=== PATIENT | female | born 1970 | race Caucasian/White ===

== ENCOUNTER 2016-11-14 16:23 | Emergency (ER) | payer MEDICARE ==
[2016-11-14 18:38] VITALS: BP 122/81
--- NOTE | 2016-11-14 19:11 | UC ---
Complaint Female HPI - History Of Current Complaint Chief Complaint: [facility] Stated Complaint: PERSONAL Time Seen by Provider: 11/14/16 18:57 Hx Obtained From: Patient Hx Last Menstrual Period: 11/11/16 ?: No Onset/Duration: Sudden Onset - C/o retained tampon. Associated Signs And Symptoms: Positive: Retained Foregin Body (Specify) - tampon in vagina - Allergies/Home Medications Allergies/Adverse Reactions: Allergies Allergy/AdvReac Type Severity Reaction Status Date / Time Amoxicillin Allergy Rash Verified 11/14/16 18:38 Diclofenac [From Cataflam] Allergy Difficulty Verified 11/14/16 18:38 Breathing Home Medications: Home Medications Torsemide 40 mg PO BID 11/14/16 [History Confirmed 11/14/16] PMH/Surg Hx/FS Hx/Imm Hx Endocrine History Of: Reports: Diabetes Denies: Thyroid Disease Cardiovascular History Of: Reports: Cardiac Disorders - CHF, Hypertension Respiratory History Of: Denies: COPD, Asthma GI/ History Of: Denies: Ulcer - Surgical History Surgical History: Yes Surgery Procedure, Year, and Place: Right ankle reconstruction, , Uterine D&C, Laporoscopy - Family History Known Family History: Positive: Cardiac Disease, Hypertension, Diabetes - Social History Occupation: Unemployed Lives: With Family Alcohol Use: Rare Substance Use Type: None Smoking Status (MU): Heavy Every Day Tobacco Smoker Type: Cigarettes Amount Used/How Often: 1 PPD Length of Time of Smoking/Using Tobacco: 20 YRS Have You Smoked in the Last Year: Yes - PT HAS PATCHES TO START QUITTING Cessation Counseling: Patient Advised to Stop Review of Systems Psychological: Anxious - a little worried about the All Other Systems Reviewed And Are Negative: Yes Physical Exam Triage Information Reviewed: Yes Appearance: Well-Appearing, No Pain Distress, Obese Vital Signs: Initial Vital Signs Temp 97.6 F 11/14/16 18:30 Pulse 101 11/14/16 18:30 Resp 16 11/14/16 18:30 BP 122/81 11/14/16 18:30 Pulse Ox 97 11/14/16 18:30 Eyes: Positive: Conjunctiva Clear Neck exam: Normal Respiratory Exam: Normal Cardiovascular Exam: Normal Abdomen Description: Positive: Nontender, Other: - Vaginal speculum exam with no tampon, dried blood only. Musculoskeletal Exam: Normal Neurological Exam: Normal Psychological Exam: Normal Skin Exam: Normal Complaint Female Dx - Differential Dx/Diagnosis Differential Diagnosis/HQI/PQRI: Endometriosis, Retained Foreign Body, Urinary Tract Infection Provider Diagnoses: Normal menstuation Discharge - Discharge Plan Condition: Stable Disposition: HOME Additional Instructions: Complaint Female HPI - History Of Current Complaint Chief Complaint: [facility]U Stated Complaint: PERSONAL Time Seen by Provider: 11/14/16 18:57 Hx Obtained From: Patient Hx Last Menstrual Period: 11/11/16 ?: No Onset/Duration: Sudden Onset - C/o retained tampon. Associated Signs And Symptoms: Positive: Retained Foregin Body (Specify) - tampon in vagina - Allergies/Home Medications Allergies/Adverse Reactions: Allergies Allergy/AdvReac Type Severity Reaction Status Date / Time Amoxicillin Allergy Rash Verified 11/14/16 18:38 Diclofenac [From Cataflam] Allergy Difficulty Verified 11/14/16 18:38 Breathing Home Medications: Home Medications Torsemide 40 mg PO BID 11/14/16 [History Confirmed 11/14/16] PMH/Surg Hx/FS Hx/Imm Hx Endocrine History Of: Reports: Diabetes Denies: Thyroid Disease Cardiovascular History Of: Reports: Cardiac Disorders - CHF, Hypertension Respiratory History Of: Denies: COPD, Asthma GI/ History Of: Denies: Ulcer - Surgical History Surgical History: Yes Surgery Procedure, Year, and Place: Right ankle reconstruction, , Uterine D&C, Laporoscopy - Family History Known Family History: Positive: Cardiac Disease, Hypertension, Diabetes - Social History Occupation: Unemployed Lives: With Family Alcohol Use: Rare Substance Use Type: None Smoking Status (MU): Heavy Every Day Tobacco Smoker Type: Cigarettes Amount Used/How Often: 1 PPD Length of Time of Smoking/Using Tobacco: 20 YRS Have You Smoked in the Last Year: Yes - PT HAS PATCHES TO START QUITTING Cessation Counseling: Patient Advised to Stop Physical Exam Vital Signs: Initial Vital Signs Temp 97.6 F 11/14/16 18:30 Pulse 101 11/14/16 18:30 Resp 16 11/14/16 18:30 BP 122/81 11/14/16 18:30 Pulse Ox 97 11/14/16 18:30 Smoking Cessation Tricks. 1. Cut down by 1 cigarette per day every 2-3 days. Write the number of smokes for that day on the calendar. 2. Identify triggers to smoking: after meals, on the phone, in the car, with coffee, on breaks at work, etc. 3. Formulate a plan with a behavior to replace the smoking. Fireballs in the car , doodle pad on the phone, flavored creamer for the coffee, go for a walk after a meal or on break at work. 4. For stress smokes do deep breathing relaxation. Breath deep in through the nose hold the breath in for a few seconds then breath out slowly through the mouth.
== END 2016-11-14 19:37 | disposition home or self-care (01) ==
LOC: UCCORT 16:23
DX: Z71.1 Person with feared health complaint in whom no diagnosis is made (principal); E11.9 Type 2 diabetes mellitus without complications; I50.9 Heart failure, unspecified; I10 Essential (primary) hypertension; E66.9 Obesity, unspecified; Z88.1 Allergy status to other antibiotic agents; F17.210 Nicotine dependence, cigarettes, uncomplicated
CPT/HCPCS: 99212; G0463

== ENCOUNTER 2017-07-06 18:12 | Emergency (ER) | payer BC, MEDICARE ==
[2017-07-06 18:38] VITALS: BP 106/71
--- NOTE | 2017-07-06 18:53 | UC ---
Skin Complaint HPI - HPI Summary HPI Summary: Pt c/o of painful area on upper back that began 2-3 days ago that is tneder to touch, has Tingling feeling, and has small blisters that erupt and drain.. Also , c/o of "red cheeks" that feels flushed and pt has c/o waking with "swollen " face in the morning that improves throughout the day and very dry skin. - History of Current Complaint Chief Complaint: [facility] Time Seen by Provider: 07/06/17 18:29 Stated Complaint: RASH Hx Obtained From: Patient Hx Last Menstrual Period: 06/27/17 ?: No Onset/Duration: Gradual Onset, Lasting Days, Still Present, Worse Since - onset Timing: Constant Onset Severity: Mild Current Severity: Moderate Location: Face, Other - upper back Character: Pruritus, Pain, Redness Aggravating Factor(s): Nothing, Touch Alleviating Factor(s): Unknown Associated Signs & Symptoms: Positive: Rash, Tenderness - Allergy/Home Medications Allergies/Adverse Reactions: Allergies Allergy/AdvReac Type Severity Reaction Status Date / Time Amoxicillin Allergy Rash Verified 07/06/17 18:38 Diclofenac [From Cataflam] Allergy Difficulty Verified 07/06/17 18:38 Breathing Home Medications: Home Medications Gabapentin CAP(*) [Neurontin 100 mg CAP(*)] 200 mg PO BID 07/06/17 [History Confirmed 07/06/17] Hydrocodone-Acetaminophen [Hydrocodone Bitartrate/AC 7.5-325 mg] 1 tab PO TID PRN 07/06/17 [History Confirmed 07/06/17] Review of Systems Constitutional: Negative Skin: Rash Eyes: Negative ENT: Negative Respiratory: Negative Cardiovascular: Negative Gastrointestinal: Negative Genitourinary: Negative Motor: Negative Neurovascular: Negative Musculoskeletal: Negative Neurological: Negative Psychological: Negative Is Patient Immunocompromised?: No All Other Systems Reviewed And Are Negative: Yes PMH/Surg Hx/FS Hx/Imm Hx Previously Healthy: Yes - Surgical History Surgical History: Yes Surgery Procedure, Year, and Place: Right ankle reconstruction, , Uterine D&C, Laporoscopy - Family History Known Family History: Positive: Cardiac Disease, Hypertension, Diabetes - Social History Occupation: Employed Full-time Lives: With Family Alcohol Use: Rare Substance Use Type: None Smoking Status (MU): Heavy Every Day Tobacco Smoker Type: Cigarettes Amount Used/How Often: 1/2 ppd Length of Time of Smoking/Using Tobacco: 20 YRS Have You Smoked in the Last Year: Yes - PT HAS PATCHES TO START QUITTING Physical Exam Triage Information Reviewed: Yes Appearance: Well-Appearing Vital Signs: Initial Vital Signs Temp 98.4 F 07/06/17 18:33 Pulse 80 07/06/17 18:33 Resp 16 07/06/17 18:33 BP 106/71 07/06/17 18:33 Pulse Ox 98 07/06/17 18:33 Vital Signs Reviewed: Yes Eye Exam: Normal ENT Exam: Normal Dental Exam: Normal Neck exam: Normal Respiratory Exam: Normal Cardiovascular Exam: Normal Abdominal Exam: Normal Musculoskeletal Exam: Normal Neurological Exam: Normal Psychological Exam: Normal Skin Exam: Other Skin: Positive: rashes - Face: possible butterfly rash or rosacea Dried vessicles on upper back and right side upper back Course/Dx - Differential Diagnoses - Skin Complaint Differential Diagnoses: Varicella Zoster - Diagnoses Provider Diagnoses: shingles. rosacea? Butterfly rash? Discharge - Discharge Plan Condition: Stable Disposition: HOME Prescriptions: Metronidazole (Topical) [Metrocream] 0.75 % EX DAILY #1 tube ValACYclovir (*) [Valtrex 1 GM(*)] 1 gm PO Q8H #21 tab Patient Education Materials: Shingles (ED), Rosacea (ED) Referrals: Cyndie Wade MD [Primary Care Provider] - As Soon As Possible
== END 2017-07-06 19:19 | disposition home or self-care (01) ==
LOC: UCCORT 18:12
DX: B02.9 Zoster without complications (principal); Z87.891 Personal history of nicotine dependence
CPT/HCPCS: 99212; G0463

== ENCOUNTER 2019-01-03 19:20 | Emergency (ER) | payer BC, MEDICARE ==
--- NOTE | 2019-01-03 19:22 | UC ---
Knee Pain HPI - HPI Summary HPI Summary: 48 yo female presents with LEFT knee pain. She tells me that 8 years ago she "tore everything" in her left knee and required extensive physical therapy. She was told she needed surgery, but declined because she has bad reactions to anesthesia. Over the last 2 days she has had left knee pain without injury. She is ambulatory without assistance. She denies numbness or tingling. She has chronic back pain and takes pain medication for this and has been taking this as usual - not helping her knee much. - History of Current Complaint Stated Complaint: LT KNEE INJURY Time Seen by Provider: 01/03/19 19:21 Hx Obtained From: Patient Hx Last Menstrual Period: 06/27/17 Onset/Duration: Sudden Onset Severity Initially: Moderate Severity Currently: Moderate Pain Intensity: 5 Pain Scale Used: 0-10 Numeric - Allergies/Home Medications Allergies/Adverse Reactions: Allergies Allergy/AdvReac Type Severity Reaction Status Date / Time amoxicillin Allergy Rash Verified 01/03/19 19:30 diclofenac Allergy Difficulty Verified 01/03/19 19:30 Breathing Home Medications: Home Medications Metoprolol Tartrate TAB* [Lopressor TAB*] 25 mg PO DAILY 01/03/19 [History Confirmed 01/03/19] PMH/Surg Hx/FS Hx/Imm Hx - Additional Past Medical History Additional PMH: Chronic back pain Cardiovascular History: Hypertension Psychological History: Anxiety, Depression - Surgical History Surgical History: Yes Surgery Procedure, Year, and Place: Right ankle reconstruction, , Uterine D&C, Laporoscopy - Family History Known Family History: Positive: Cardiac Disease, Hypertension, Diabetes - Social History Lives: With Family Alcohol Use: None Substance Use Type: None Smoking Status (MU): Current Every Day Smoker Type: Cigarettes Amount Used/How Often: 1 ppd Length of Time of Smoking/Using Tobacco: 20 YRS Have You Smoked in the Last Year: Yes - PT HAS PATCHES TO START QUITTING Household Exposure Type: Cigarettes Review of Systems All Other Systems Reviewed And Are Negative: Yes Constitutional: Positive: Negative Skin: Positive: Negative Respiratory: Positive: Negative Cardiovascular: Positive: Negative Neurovascular: Positive: Negative Musculoskeletal: Positive: Other: - Left knee pain Neurological: Positive: Negative Psychological: Positive: Negative Physical Exam - Summary Physical Exam Summary: GENERAL: NAD. WDWN. No pain distress. SKIN: No rashes, sores, lesions, or open wounds. CHEST: No accessory muscle use. Breathing comfortably and in no distress. CV: Pulses intact popliteal, PT, and DP. Cap refill <2seconds MSK: LEFT KNEE: Mild TTP about patella. FROM, pain with full extension. Strength 5/5. No edema or obvious bony deformities. No patella apprehension. Negative [place], A/P drawer, Lou, and varus/valgus stress. NEURO: Alert. Sensations intact and symmetric B/L LEs PSYCH: Age appropriate behavior. Triage Information Reviewed: Yes Vital Signs: Vital Signs: Temp Pulse Resp BP Pulse Ox 97.8 F 94 19 122/72 98 01/03/19 19:27 01/03/19 19:27 01/03/19 19:27 01/03/19 19:27 01/03/19 19:27 Vital Signs Reviewed: Yes Knee Pain Course/Dx - Course Course Of Treatment: XR: wet read by myself is negative for any acute process. Discussed with pt. Will refer her to physical therapy and orthopedics for further eval and treatment. - Differential Dx/Diagnosis Provider Diagnosis: Left knee pain Discharge - Sign-Out/Discharge Documenting (check all that apply): Patient Departure All imaging exams completed and their final reports reviewed: No - Discharge Plan Condition: Stable Disposition: HOME Patient Education Materials: Knee Pain (ED) Referrals: Dianelys Alegre MD [Primary Care Provider] - Montse Carolina MD [Medical Doctor] - 2 Weeks Additional Instructions: If you develop a fever, shortness of breath, chest pain, new or worsening symptoms - please call your PCP or go to the ED immediately. 1) Rest, elevate, and ice your knee intermittently throughout the day to reduce pain and swelling 2) Please call Physical therapy to schedule an appointment for treatment 3) Please call Orthopedics at the number below to schedule an appointment for further evaluation within 2 weeks - Billing Disposition and Condition Condition: STABLE Disposition: Home - Attestation Statements Provider Attestation: I was available for consult. This patient was seen by the ERINN. The patient was not presented to, seen by, or examined by me. -Jeannette
--- OUTSIDE RECORDS SUMMARY | 2019-01-03 19:27 | XMS REPORT | Continuity of Care Document ---
:1970 External Reference #:[id number] Author Name Rakel Childs Care Team Providers Name Role Phone Cyndie Wade MD Care Team Information Partner Unavailable Dianelys Alegre MD Primary Care Physician Unavailable Payers Date Identification Numbers Payment Provider Subscriber Policy Number: [id number] [facility] Tamara Gilmore Group Number: [id number] [address] [address] PayID: [id number] [place] [address] Policy Number: [id number] Medicare Tamara Gilmore PayID: [id number] [address] [place] [address] Problems Active Problems Provider Date Nonspecific abdominal symptom Liz Cortez ANP Onset: 12/01/2013 Chest pain Liz Cortez ANP Onset: 12/01/2013 Dyspnea Liz Cortez ANP Onset: 07/15/2015 Mixed hyperlipidemia Liz Cortez ANP Onset: 07/15/2015 Essential hypertension Liz Cortez ANP Onset: 07/15/2015 Lateral epicondylitis Thomas Ngo M.D. Onset: 08/26/2015 Disorder of shoulder Thomas Ngo M.D. 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 Obesity Cyndie Wade MD Onset: 07/29/2017 Type II diabetes mellitus Cyndie Wade MD Onset: 07/29/2017 uncontrolled Medial epicondylitis Phoebe Chaparro PA Onset: 01/27/2018 Palpitations Khari Sweeney M.D., Onset: 12/21/2018 [facility] Jaw pain Khari Sweeney M.D., Onset: 12/21/2018 [facility] Family History Date Family Member(s) Observation Comments Father Diabetes Mother Heart Disease Mother Diabetes First Brother Atrial Fibrillation Social History Type Date Description Comments Sex Unknown Lives With Diet Patient follows no dietary restrictions Occupation Currently Working 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/IADL's Independent with all ADL's Tobacco Use Start: Unknown Current Cigarette Smoker 1/2-1 ppd x 20 yrs 1 Pack Daily ETOH Use Denies alcohol use Recreational Drug Use Denies Drug Use Tobacco Use Start: Unknown Patient is a current smoker, smokes every day Smoking Status Reviewed: 08/17/18 Patient is a current smoker, smokes every day Allergies, Adverse Reactions, Alerts Active Allergies Reaction Severity Comments Date Amoxicillin Hives 04/18/2010 Cataflam SOB 04/18/2010 Anesthesia Intubated incorrectly 05/11/2013 Medications Active Medications SIG Qnty Indications Ordering Provider Date Flecainide Acetate 1 by mouth twice 180tabs Khari Sweeney 12/21/2018 a day Cadence Treadwell, FACC 100mg Tablets Metoprolol Succinate 1 by mouth every 90tabs R00.2 Khari Sweeney 2018 ER day Cadence Treadwell, FACC 50mg Tablets ER 24HR Fentanyl 1 patch every 72 Unknown 12mcg/HR hours Patches 72HR Klor-Con M20 1 by mouth every Unknown 20Meq day Tablets ER Bupropion HCL ER (SR) 1 by mouth twice Unknown a day 150mg Tablets ER 12HR Buspirone HCL 1 by mouth twice Unknown 10mg a day Tablets Lisinopril 1 by mouth every Unknown 20mg Tablets day Aspirin Adult Low 1 by mouth every Unknown Dose day 81mg Tablets DR Riveraemide 4 by mouth every Unknown 20mg Tablets day Robaxin 2 tabs by mouth Unknown 750mg Tablets every 6 hours as needed Pravastatin Sodium Take 1 Tablet By 90tabs Khari Sweeney 40mg Mouth Once Daily Cadence Treadwell, FACC Tablets Gabapentin 3 by mouth three Unknown 100mg times a day Capsules Omeprazole 1 by mouth every 90caps Cyndie Wade, 20mg day Capsules DR History Medications Potassium Chloride 4 by mouth daily 90tabs Shakila Arteaga, 03/16/2018 - Shana ER while on 04/28/2018 20Meq Tablets Metolazone. ER Decrease to 2 tabs (40 mEq) when not taking Metolazone Metolazone 1 tab by mouth 20 30tabs hSakila Arteaga, 03/16/2018 - 2.5mg minutes before MD 04/28/2018 Tablets Torsemide x 3 days Lorazepam 1-2 tabs one hour 2tabs Cyndie Wade, 03/09/2017 - 1mg Tablets prior to MRI MD 07/29/2017 Potassium Chloride ER 1 tab by mouth 60tabs Cyndie Wade, 03/03/2017 - daily MD 03/16/2018 20Meq Tablets ER Spiriva Respimat I50.32 Shakila Arteaga, 06/09/2016 - MD 10/29/2016 1.25mcg/Act Aerosol Prednisone 2 tabs (40 mg) 10tabs I50.32 Shakila Arteaga, 06/09/2016 - 20mg Tablets daily for 5 days 07/15/2016 for shortness of breath/wheezing Baclofen 1 tab by mouth 60tabs Thomas Ngo, 08/22/2015 - 10mg Tablets three times a day M.DCyndie 01/27/2016 spasm Spironolactone Take One Tablet By 90taallen Sweeney, 01/31/2014 - 25mg Mouth Once Daily Khari Treadwell, 04/28/2018 Tablets Jessika.Taniya, FACC Furosemide take one & 120tabs Shakila Arteaga, 04/18/2010 - 40mg Tablets one-half tablets MD Unknown by mouth once daily Methocarbamol 1 tabs by mouth at Unknown - 500mg bedtime as needed 08/19/2018 Tablets for muscle spasm Torsemide Take 2 Tablets By 180tabs Patel, - 20mg Tablets Mouth Once Daily Khari Treadwell, 03/16/2018 Cadence, [facility] Fluoxetine HCL take one capsule 30caps Sheri, Cyndie, - 40mg by mouth every day 04/28/2018 Capsules Hydrocodone-Acetamino up to 3 daily prn Unknown - phen 08/19/2018 5-325mg Tablets Tizanidine HCL as needed Unknown - Unknown Hydrocodone-Acetamino 1 by mouth every 6 Unknown - phen hours as needed 10/29/2016 5-325mg Tablets pain Tizanidine HCL 1 by mouth three Unknown - 4mg times a day as 08/22/2015 Capsules needed Buspirone HCL 1 tab by mouth 180tabs Sheri, Cyndie, - 15mg twice a day for 04/28/2018 Tablets anxiety as needed Cipro 1 by mouth twice a 14tabs Unknown - 500mg Tablets day Unknown Flagyl 1 tab by mouth 42tabs Unknown - 250mg Tablets three times a Unknown day-- 10 days Aspirin 1 po qd Unknown - 81mg Tablets 08/22/2015 Vicodin 1-2 po q4h prn Unknown - 5-500mg Tablets Unknown Metformin HCL 1 by mouth every 60tabs Unknown - 500mg day 01/27/2016 Tablets Spironolactone 1 tab po qd 180units Unknown - 20mg 01/31/2014 Coreg 1 by mouth twice a 180tabs R00.2 Patel, - 3.125mg Tablets day Khari Treadwell, 12/21/2018 Cadence, [facility] Magnesium Oxide 1 by mouth every 180tabs Unknown - 400mg day Unknown Tablets Potassium Chloride ER 1 by mouth twice a 30tabs Unknown - day Unknown 20Meq Tablets ER Medications Administered in Office Medication SIG Qnty Indications Ordering Provider Date Methylprednisolone Phoebe Clark PA 08/19/2018 (Depomedrol) 80mg injection Injection Betamethasone Acetate & Sodium Phoebe Chaparro PA 08/19/2018 Phosphate 3 MG Of Each Injection Methylprednisolone acetate Phoebe Chaparro PA 04/28/2018 (Depomedrol) 80mg injection Injection Methylprednisolone acetate Phoebe Chaparro PA 01/27/2018 (Depomedrol) 80mg injection Injection Methylprednisolone acetate Phoebe Chaparro PA 01/27/2018 (Depomedrol) 80mg injection Injection Betamethasone Acetate & Sodium Phoebe Chaparro PA 01/27/2018 Phosphate 3 MG Of Each Injection Betamethasone Acetate & Sodium Phoebe Chaparro PA 01/27/2018 Phosphate 3 MG Of Each Injection Methylprednisolone acetate Yi Alamo, 10/29/2016 (Depomedrol) 80mg injection RPAC Injection Betamethasone Acetate & Sodium Yi Alamo, 10/29/2016 Phosphate 3 MG Of Each RPAC Injection Immunizations CPT Code Status Date Vaccine Lot # [id number] Given Unknown Influenza Virus Split Children 6-35 Mo Of Age Intramuscular Use Vital Signs Date Vital Result Comment 12/21/2018 8:56am BP Systolic 112 mmHg BP Diastolic 74 mmHg Heart Rate 110 /min Weight 268.00 lb O2 % BldC Oximetry 93 % 08/19/2018 9:41am BP Systolic 132 mmHg BP Diastolic 74 mmHg Body Temperature 97.4 F Heart Rate 107 /min Height 64 inches 5'4" Weight 275.00 lb BMI (Body Mass Index) 47.2 kg/m2 BSA (Body Surface Area) 2.24 m2 Graff body weight in kilograms 54 kg O2 % BldC Oximetry 98 % Pain Level 10 04/28/2018 4:24pm BP Systolic Sitting Left Arm 110 mmHg BP Diastolic Sitting Left Arm 78 mmHg Body Temperature 98.0 F Heart Rate 86 /min Respiratory Rate 17 /min Height 64.5 inches 5'4.50" Weight 292.00 lb BMI (Body Mass Index) 49.3 kg/m2 BSA (Body Surface Area) 2.31 m2 Graff body weight in kilograms 56 kg O2 % BldC Oximetry 96 % 03/16/2018 11:53am BP Systolic Sitting Left Arm 104 mmHg BP Diastolic Sitting Left Arm 80 mmHg Heart Rate 82 /min Respiratory Rate 18 /min Height 64.5 inches 5'4.50" Weight 283.00 lb BMI (Body Mass Index) 47.8 kg/m2 BSA (Body Surface Area) 2.28 m2 Graff body weight in kilograms 56 kg O2 % BldC Oximetry 96 % 01/27/2018 4:27pm BP Systolic Sitting Left Arm 127 mmHg BP Diastolic Sitting Left Arm 83 mmHg Body Temperature 98.3 F Heart Rate 84 /min Respiratory Rate 17 /min Height 64.5 inches 5'4.50" Weight 282.00 lb BMI (Body Mass Index) 47.7 kg/m2 BSA (Body Surface Area) 2.28 m2 Graff body weight in kilograms 56 kg O2 % BldC Oximetry 98 % 10/28/2017 4:33pm BP Systolic 118 mmHg BP Diastolic 82 mmHg Body Temperature 97.4 F Heart Rate 76 /min Height 64.5 inches 5'4.50" Weight 282.00 lb BMI (Body Mass Index) 47.7 kg/m2 BSA (Body Surface Area) 2.28 m2 Graff body weight in kilograms 56 kg 07/29/2017 3:52pm BP Systolic Sitting Left Arm 111 mmHg BP Diastolic Sitting Left Arm 76 mmHg Heart Rate 67 /min Height 64.5 inches 5'4.50" Weight 286.00 lb BMI (Body Mass Index) 48.3 kg/m2 BSA (Body Surface Area) 2.29 m2 Graff body weight in kilograms 56 kg 07/29/2017 12:51pm BP Systolic 107 mmHg BP Diastolic 73 mmHg Heart Rate 72 /min Respiratory Rate 14 /min Height 64.5 inches 5'4.50" Weight 285.38 lb BMI (Body Mass Index) 48.2 kg/m2 BSA (Body Surface Area) 2.29 m2 Graff body weight in kilograms 56 kg O2 % BldC Oximetry 96 % 02/23/2017 11:00am BP Systolic Sitting Left Arm 105 mmHg BP Diastolic Sitting Left Arm 71 mmHg Heart Rate 81 /min Respiratory Rate 18 /min Height 64.5 inches 5'4.50" Weight 280.00 lb BMI (Body Mass Index) 47.3 kg/m2 BSA (Body Surface Area) 2.27 m2 Graff body weight in kilograms 56 kg 02/01/2017 8:41am Height 64.5 inches 5'4.50" Weight 184.00 lb BMI (Body Mass Index) 31.1 kg/m2 BSA (Body Surface Area) 1.90 m2 Graff body weight in kilograms 56 kg 06/09/2016 10:08am BP Systolic Sitting Right Arm 126 mmHg BP Diastolic Sitting Right Arm 87 mmHg Heart Rate 88 /min Respiratory Rate 18 /min Height 64.5 inches 5'4.50" Weight 297.00 lb BMI (Body Mass Index) 50.2 kg/m2 BSA (Body Surface Area) 2.33 m2 08/22/2015 2:34pm BP Systolic Sitting Right Arm 131 mmHg BP Diastolic Sitting Right Arm 87 mmHg Heart Rate 97 /min Height 64.5 inches 5'4.50" Weight 284.00 lb BMI (Body Mass Index) 48.0 kg/m2 BSA (Body Surface Area) 2.28 m2 07/15/2015 11:39am BP Systolic Sitting Right Arm 112 mmHg BP Diastolic Sitting Right Arm 78 mmHg Heart Rate 80 /min Respiratory Rate 16 /min Height 65 inches 5'5" Weight 287.00 lb BMI (Body Mass Index) 47.8 kg/m2 BSA (Body Surface Area) 2.31 m2 07/11/2015 2:51pm BP Systolic 113 mmHg BP Diastolic 77 mmHg Heart Rate 105 /min Respiratory Rate 18 /min Height 65 inches 5'5" Weight 285.00 lb BMI (Body Mass Index) 47.4 kg/m2 BSA (Body Surface Area) 2.30 m2 04/08/2015 3:53pm Heart Rate 77 /min Respiratory Rate 18 /min Height 65 inches 5'5" Weight 282.00 lb BMI (Body Mass Index) 46.9 kg/m2 BSA (Body Surface Area) 2.29 m2 01/31/2014 10:37am BP Systolic Sitting Left Arm 112 mmHg BP Diastolic Sitting Left Arm 72 mmHg Heart Rate 80 /min Respiratory Rate 20 /min Height 65 inches 5'5" Weight 272.00 lb BMI (Body Mass Index) 45.3 kg/m2 BSA (Body Surface Area) 2.25 m2 11/30/2013 11:26am BP Systolic Sitting Left Arm 88 mmHg BP Diastolic Sitting Left Arm 64 mmHg Body Temperature 99.2 F Heart Rate 60 /min Respiratory Rate 16 /min Height 65 inches 5'5" Weight 268.00 lb BMI (Body Mass Index) 44.6 kg/m2 BSA (Body Surface Area) 2.24 m2 05/11/2013 12:11pm BP Systolic Sitting Right Arm 96 mmHg BP Diastolic Sitting Right Arm 70 mmHg Heart Rate 70 /min Respiratory Rate 16 /min Height 65 inches 5'5" Weight 285.00 lb BMI (Body Mass Index) 47.4 kg/m2 BSA (Body Surface Area) 2.30 m2 04/17/2010 8:54am Height 65 inches 5'5" Weight 270.00 lb BMI (Body Mass Index) 44.9 kg/m2 Results Test Date Facility Test Result H/L Range Note Serum or plasma 12/07/19 N2N/CCD Import Serum or plasma 8.4 Low 8.5-10.1 calcium measurement 19 calcium measurement (mass/volume) (mass/volume) Serum or plasma 12/07/19 N2N/CCD Import Serum or plasma 9 8-16 anion gap 19 anion gap Co2 SerPl-sCnc 12/07/19 N2N/CCD Import Co2 SerPl-sCnc 25 21-32 19 Serum or plasma 12/07/19 N2N/CCD Import Serum or plasma 106 98-107 chloride measurement 19 chloride measurement Serum or plasma 12/07/19 N2N/CCD Import Serum or plasma 3.6 3.5-5.1 potassium 19 potassium measurement measurement Serum or plasma 12/07/19 N2N/CCD Import Serum or plasma <0.015 troponin i.cardiac 19 troponin i.cardiac measurement (ma measurement (mass/volume) Serum or plasma 12/07/19 N2N/CCD Import Serum or plasma 150 High 74-106 glucose measurement 19 glucose measurement (mass/volume) (mass/volume) Serum or plasma urea 12/07/19 N2N/CCD Import Serum or plasma 9 7-18 nitrogen measurement 19 urea nitrogen (mass/vo measurement (mass/volume) Serum or plasma 12/07/19 N2N/CCD Import Serum or plasma 0.6 0.6-1.3 creatinine 19 creatinine measurement measurement (mass/volum (mass/volume) Sodium SerPl-sCnc 12/07/19 N2N/CCD Import Sodium SerPl-sCnc 140 136-145 19 Serum or plasma urea 12/07/19 N2N/CCD Import Serum or plasma 15.0 nitrogen/creatinine 19 urea mass rati nitrogen/creatinine mass ratio GFR/Bsa pred.black 12/07/19 N2N/CCD Import GFR/Bsa pred.black >60 >60 SerPl MDRD-ArVRat 19 SerPl MDRD-ArVRat Estimated glomerular 12/07/19 N2N/CCD Import Estimated >60 >60 filtration rate 19 glomerular (GFR) non-Afr filtration rate (GFR) non- Blood monocytes 12/06/19 N2N/CCD Import Blood monocytes 0.67 0.3-0.9 automated count 19 automated count (number/volume) (number/volume) Automated blood 12/06/19 N2N/CCD Import Automated blood 0.17 0.0-0.5 eosinophil count 19 eosinophil count Automated blood 12/06/19 N2N/CCD Import Automated blood 0.05 0.0-0.1 basophil count 19 basophil count (number/volume) (number/volume) Automated blood 12/06/19 N2N/CCD Import Automated blood 0.09 immature granulocyte 19 immature count (number granulocyte count (number/volume) Automated blood 12/06/19 N2N/CCD Import Automated blood 0.00 nucleated 19 nucleated erythrocyte count erythrocyte count (count (count/volume) Fibrin D-dimer Feu 12/06/19 N2N/CCD Import Fibrin D-dimer Feu 0.74 measurement in 19 measurement in platelet poor pl platelet poor plasma (mass/volume) Serum or plasma 12/06/19 N2N/CCD Import Serum or plasma 7.2 6.4-8.2 protein measurement 19 protein measurement (mass/volume) (mass/volume) Serum or plasma 12/06/19 N2N/CCD Import Serum or plasma 3.5 3.4-5.0 albumin measurement 19 albumin measurement (mass/volume) (mass/volume) Serum globulin 12/06/19 N2N/CCD Import Serum globulin 3.7 1.9-4.3 measurement by 19 measurement by calculation (mass/vo calculation (mass/volume) Serum or plasma 12/06/19 N2N/CCD Import Serum or plasma 0.9 albumin/globulin 19 albumin/globulin mass ratio mass ratio Serum or plasma 12/06/19 N2N/CCD Import Serum or plasma 0.2 0.2-1.0 total bilirubin 19 total bilirubin measurement (mass/ measurement (mass/volume) Serum or plasma 12/06/19 N2N/CCD Import Serum or plasma 30 15-37 aspartate 19 aspartate aminotransferase aminotransferase measure measurement (enzymatic activity/volume) Serum or plasma 12/06/19 N2N/CCD Import Serum or plasma 27 12-78 alanine 19 alanine aminotransferase aminotransferase measureme measurement (enzymatic activity/volume) Serum or plasma 12/06/19 N2N/CCD Import Serum or plasma 67 45-117 alkaline phosphatase 19 alkaline measurement ( phosphatase measurement (enzymatic activity/volume) Blood erythrocytes 12/06/19 N2N/CCD Import Blood erythrocytes 4.84 3.90- 5.4 automated count 19 automated count 0 (number/volume) (number/volume) Automated leukocyte 12/06/19 N2N/CCD Import Automated leukocyte 10.5 3.1 -10.7 count 19 count (number/volume) (number/volume) Blood hemoglobin 12/06/19 N2N/CCD Import Blood hemoglobin 14.3 11.6-15. measurement 19 measurement 8 (mass/volume) (mass/volume) Hct VFr Bld Auto 12/06/19 N2N/CCD Import Hct VFr Bld Auto 41.4 36.0-46. 19 1 Automated 12/06/19 N2N/CCD Import Automated 85.5 80.9-99. erythrocyte mean 19 erythrocyte mean 0 corpuscular volume corpuscular volume (MCV (MCV) measurement Automated 12/06/19 N2N/CCD Import Automated 29.5 25.9-32. erythrocyte mean 19 erythrocyte mean 7 corpuscular corpuscular hemoglobin hemoglobin (mass per erythrocyte) Automated 12/06/19 N2N/CCD Import Automated 34.5 High 30.8-34. erythrocyte mean 19 erythrocyte mean 3 corpuscular corpuscular hemoglobin hemoglobin concentration measurement (mass/volume) Automated blood 12/06/19 N2N/CCD Import Automated blood 331 155-360 platelet count 19 platelet count (count/volume) (count/volume) Automated 12/06/19 N2N/CCD Import Automated 40.9 36-47 erythrocyte 19 erythrocyte distribution width distribution width Automated 12/06/19 N2N/CCD Import Automated 13.2 11.7-14. erythrocyte 19 erythrocyte 4 distribution width distribution width ratio ratio Automated blood 12/06/19 N2N/CCD Import Automated blood 10.4 8.9-12.4 platelet mean volume 19 platelet mean measurement volume measurement Automated blood 12/06/19 N2N/CCD Import Automated blood 3.62 1.0-4.0 lymphocyte count 19 lymphocyte count (number/volume) (number/volume) Absolute neutrophil 12/06/19 N2N/CCD Import Absolute neutrophil 5.88 1.8 -7.0 count 19 count Automated blood 12/06/19 N2N/CCD Import Automated blood 0.0 < 10/ nucleated 19 nucleated 100 WBC erythrocyte count as erythrocyte count per as percentage of total leukocytes Automated blood 12/06/19 N2N/CCD Import Automated blood 0.9 0.0-5.0 immature granulocyte 19 immature count as perc granulocyte count as percentage of total leukocytes Automated blood 12/06/19 N2N/CCD Import Automated blood 56.1 40.4-72. neutrophils/100 19 neutrophils/100 8 leukocytes leukocytes Automated blood 12/06/19 N2N/CCD Import Automated blood 34.5 20.0-42. lymphocytes/100 19 lymphocytes/100 0 leukocytes leukocytes Automated monocyte % 12/06/19 N2N/CCD Import Automated monocyte 6.4 4.3- 13.2 19 % Automated basophil % 12/06/19 N2N/CCD Import Automated basophil 0.5 0.0- 1.1 19 % Automated eosinophil 12/06/19 N2N/CCD Import Automated 1.6 0.0-6.6 % 19 eosinophil % Basic Metabolic 03/16/20 [facility] Glucose 153 mg/dL High 74-106 1 Panel [address] [place] [address] [phone] BUN 9 mg/dL Normal 7-18 Creatinine 0.8 mg/dL Normal 0.6-1.3 Glom Filtration Rate, Estimate >60 mL/min >60 If >60 mL/min >60 2 BUN/Creat 11.2 ratio Sodium 138 mmol/L Normal 136-145 Potassium 3.9 mmol/L Normal 3.5-5.1 Chloride 99 mmol/L Normal 98-107 Carbon Dioxide 30 mmol/L Normal 21-32 Anion Gap 9 mEq/L Normal 8-16 Calcium 9.1 mg/dL Normal 8.5-10.1 Aot Request 03/11/2018 [facility] Aot Request Test(s) added 3, [address] [place] [address] [phone] Tests to be added: serum hcg Microalbumin,Random 07/29/2017 [facility] Microalbumin,Urine < 5.0 < [address] mg/L 20.0 [place] [address] [phone] Laboratory test 02/24/2017 [facility] Rheumatoid Factor < Normal 0.0-1 [address] Screen 10.0 5.0 [place] [address] IU/mL [phone] Sedimentation Rate 45 mm/hr High 0-20 7 Comprehensive Metabolic 02/24/2017 [facility] Glucose 131 mg/dL High 74-106 Panel 134 [place], [place] [id number] [phone] BUN 18 mg/dL Normal 7-18 Creatinine 0.8 mg/dL Normal 0.6-1.3 Glom Filtration Rate, Estimate >60 mL/min >60 If >60 mL/min >60 8 BUN/Creat 22.5 ratio Sodium 138 mmol/L Normal 136-145 Potassium 3.3 mmol/L Low 3.5-5.1 Chloride 102 mmol/L Normal 98-107 Carbon Dioxide 28 mmol/L Normal 21-32 Anion Gap 8 mEq/L Normal 8-16 Calcium 8.9 mg/dL Normal 8.5-10.1 Total Protein 6.8 g/dL Normal 6.4-8.2 Albumin 3.0 g/dL Low 3.4-5.0 Globulin 3.8 g/dL Normal 1.9-4.3 Alb/Glob 0.8 ratio Bilirubin,Total 0.3 mg/dL Normal 0.2-1.0 Sgot/Ast 11 U/L Low 15-37 9 SGPT/Alt 21 U/L Normal 12-78 Alkaline Phosphatase 70 U/L Normal 45-117 CCP Igg/Iga 02/24/2017 [facility] CCP Igg/Iga 5 units 0-19 10 Antibodies 134 [facility] Antibodies [place], [place] [id number] [phone] Laboratory test 02/24/2017 [facility] CK 53 U/L Normal 26-192 finding [address] [place] [address] [phone] Anti-Nuclear Antibodies Direct Negative AU/mL Negative 11 Sodium SerPl-sCnc 02/24/2017 N2N/CCD Import Sodium SerPl-sCnc 138 136- 145 Serum or plasma 02/24/2017 N2N/CCD Import Serum or plasma 181 High <150 triglyceride triglyceride measurement measurement (mass/vol (mass/volume) Serum or plasma 02/24/2017 N2N/CCD Import Serum or plasma 0.3 0.2-1.0 total bilirubin total bilirubin measurement (mass/ measurement (mass/volume) Serum or plasma 02/24/2017 N2N/CCD Import Serum or plasma 3.6 2.5-4.0 phosphate phosphate measurement measurement (mass/volume (mass/volume) Serum or plasma 02/24/2017 N2N/CCD Import Serum or plasma 5 0-19 cyclic cyclic citrullinated citrullinated peptide IgA+I peptide IgA+IgG antibody assay by immunoassay (units/volume) Serum or plasma 02/24/2017 N2N/CCD Import Serum or plasma 168 <200 cholesterol cholesterol measurement measurement (mass/volu (mass/volume) Serum or plasma 02/24/2017 N2N/CCD Import Serum or plasma 84 < 100 cholesterol in LDL cholesterol in LDL measurement by measurement by calculation (mass/volume) Serum or plasma 02/24/2017 N2N/CCD Import Serum or plasma 48 >40 cholesterol in HDL cholesterol in HDL measurement (ma measurement (mass/volume) Prot SerPl-mCnc 02/24/2017 N2N/CCD Import Prot SerPl-mCnc 6.8 6.4-8.2 Potassium 02/24/2017 N2N/CCD Import Potassium 3.3 Low 3.5-5.1 SerPl-sCnc SerPl-sCnc Laboratory test 02/24/2017 [facility] Magnesium 1.9 Normal 1.8-2.[address] mg/dL [place], [place] [id number] [phone] Phosphorous 3.6 mg/dL Normal 2.5-4.0 LDL Cholesterol Profile 02/24/2017 [facility] Cholesterol 168 mg/dL <[address] [place], [place] [id number] [phone] Triglycerides 181 mg/dL High <150 13 HDL Cholesterol 48 mg/dL >40 14 LDL-Cholesterol 84 mg/dL < 100 15 Glycohemoglobin 02/24/2017 [facility] Glycohemoglobin 6.8 % High 4.2-6.[address] (A1c) [place], [place] [id number] [phone] eAG 148 mg/dL Laboratory test 02/24/2017 [facility] Thyroid 1.61 Normal 0.30-4.[address] Stim uIU/[place] [address] Hormone [phone] Free T4 0.99 ng/dL Normal 0.76-1.46 [facility] N2N/CCD Import Alp SerPl-cCnc 70 45-117 Alt SerPl-cCnc 02/24/2017 N2N/CCD Import Alt SerPl-cCnc 21 12-78 Chelita direct serum 02/24/2017 N2N/CCD Import Chelita direct serum Negative Negative Albumin SerPl-mCnc 02/24/2017 N2N/CCD Import Albumin SerPl-mCnc 3.0 Low 3.4-5.0 Albumin/Glob SerPl 02/24/2017 N2N/CCD Import Albumin/Glob SerPl 0.8 Anion Gap 02/24/2017 N2N/CCD Import Anion Gap 8 8-16 SerPl-sCnc SerPl-sCnc Aspartate 02/24/2017 N2N/CCD Import Aspartate 11 Low 15-37 aminotransferase aminotransferase [Enzymatic [Enzymatic activity/vol activity/volume] in Serum or Plasma BUN SerPl-mCnc 02/24/2017 N2N/CCD Import BUN SerPl-mCnc 18 7-18 Hgb A1c MFr Bld 02/24/2017 N2N/CCD Import Hgb A1c MFr Bld 6.8 High 4.2- 6.3 Glucose 02/24/2017 N2N/CCD Import Glucose 131 High 74-106 [Mass/volume] in [Mass/volume] in Serum or Plasma Serum or Plasma Globulin Ser 02/24/2017 N2N/CCD Import Globulin Ser 3.8 1.9-4.3 Calc-mCnc Calc-mCnc Erythrocyte 02/24/2017 N2N/CCD Import Erythrocyte 45 High 0-20 sedimentation rate sedimentation rate by 15 minute readin by 15 minute reading Creat SerPl-mCnc 02/24/2017 N2N/CCD Import Creat SerPl-mCnc 0.8 0.6-1.3 Chloride SerPl-sCnc 02/24/2017 N2N/CCD Import Chloride 102 98-107 SerPl-sCnc Calcium SerPl-mCnc 02/24/2017 N2N/CCD Import Calcium SerPl-mCnc 8.9 8.5- 10.1 Co2 SerPl-sCnc 02/24/2017 N2N/CCD Import Co2 SerPl-sCnc 28 21-32 Blood glucose mean 02/24/2017 N2N/CCD Import Blood glucose mean 148 value measurement value measurement estimated fro estimated from glycated hemoglobin (mass/volume) BUN/Creat SerPl 02/24/2017 N2N/CCD Import BUN/Creat SerPl 22.5 Eosinophil/leuk NFr 02/08/2017 N2N/CCD Import Eosinophil/leuk 1.4 0.0- 6.6 Bld Auto NFr Bld Auto Eosinophil # Bld 02/08/2017 N2N/CCD Import Eosinophil # Bld 0.25 0.0- 0.5 Auto Auto Globulin Ser 02/08/2017 N2N/CCD Import Globulin Ser 3.8 1.9-4.3 Calc-mCnc Calc-mCnc Glucose 02/08/2017 N2N/CCD Import Glucose 172 High 74-106 [Mass/volume] in [Mass/volume] in Serum or Plasma Serum or Plasma Hct VFr Bld Auto 02/08/2017 N2N/CCD Import Hct VFr Bld Auto 40.4 36.0- 46.1 Lymphocytes 02/08/2017 N2N/CCD Import Lymphocytes 5.52 High 1.0-4.0 [#/volume] in Blood [#/volume] in by Automated count Blood by Automated count Lymphocytes/leuk 02/08/2017 N2N/CCD Import Lymphocytes/leuk 31.9 20.0- 42.0 NFr Bld Auto NFr Bld Auto MCV RBC Auto 02/08/2017 N2N/CCD Import MCV RBC Auto 86.5 80.9-99.0 Monocytes/leuk NFr 02/08/2017 N2N/CCD Import Monocytes/leuk NFr 5.4 4.3- 13.2 Bld Auto Bld Auto Neutrophils # Bld 02/08/2017 N2N/CCD Import Neutrophils # Bld 10.57 High 1.8-7.0 Auto Auto Neutrophils/leuk 02/08/2017 N2N/CCD Import Neutrophils/leuk 61.2 40.4- 72.8 NFr Bld Auto NFr Bld Auto PMV Bld Auto 02/08/2017 N2N/CCD Import PMV Bld Auto 10.8 8.9-12.4 Platelets 02/08/2017 N2N/CCD Import Platelets 283 150-400 [#/volume] in Blood [#/volume] in by Automated count Blood by Automated count Potassium 02/08/2017 N2N/CCD Import Potassium 2.8 3.5-5.1 SerPl-sCnc SerPl-sCnc Prot SerPl-mCnc 02/08/2017 N2N/CCD Import Prot SerPl-mCnc 6.9 6.4-8.2 RDW RBC Auto 02/08/2017 N2N/CCD Import RDW RBC Auto 43.4 3-47 RDW RBC Auto-Rto 02/08/2017 N2N/CCD Import RDW RBC Auto-Rto 14.4 11.7- 14.4 Serum or plasma 02/08/2017 N2N/CCD Import Serum or plasma 0.3 0.2-1.0 total bilirubin total bilirubin measurement (mass/ measurement (mass/volume) Sodium SerPl-sCnc 02/08/2017 N2N/CCD Import Sodium SerPl-sCnc 141 136- 145 Unloinc 02/08/2017 N2N/CCD Import Unloinc See Note 17 WBC # Bld Auto 02/08/2017 N2N/CCD Import WBC # Bld Auto 17.3 High 3.1- 10.7 Color Ur 02/08/2017 N2N/CCD Import Color Ur Yellow Yellow Ua Routine 02/08/2017 [facility] Urine Color YELLOW Yellow 18 [address] [place], [place] [id number] [phone] Urine Clarity CLEAR Clear Urine Glucose - Dipstick NEGATIVE mg/dL Negative Urine Bilirubin - Dipstick NEGATIVE Negative Urine Ketone NEGATIVE mg/dL Negative Urine Specific [place] 1.010 Normal 1.010-1.030 Urine Blood TRACE Negative Urine PH 7.0 Normal 6.5-7.5 Urine Protein - Dipstick NEGATIVE mg/dL Negative Urine Urobilinogen - Dipstick 0.2 E.U./dL Normal 0.2-1.0 Urine Nitrite - Dipstick NEGATIVE Negative Urine Leuk Esterase TRACE Abnormal Negative Urine RBC 0-2 rbc/hpf 0-2 Urine WBC 0-2 wbc/hpf 0-7 Urine Epithelial Cells VERY FEW /lpf None Seen Source: URINE, CLEAN CAT <SEE NOTE> 19 Alp SerPl-cCnc 02/08/2017 N2N/CCD Import Alp SerPl-cCnc 64 45-117 Laboratory test 02/08/2017 [facility] CK 66 U/L Normal 26-192 20 finding [address] [place], [place] [id number] [phone] Troponin-I < 0.015 ng/mL 21 Comprehensive Metabolic 02/08/2017 [facility] Glucose 172 mg/dL High 74-106 Panel 134 [place] [address] [phone] BUN 14 mg/dL Normal 7-18 Creatinine 0.8 mg/dL Normal 0.6-1.3 Glom Filtration Rate, Estimate >60 mL/min >60 If >60 mL/min >60 22 BUN/Creat 17.5 ratio Sodium 141 mmol/L Normal 136-145 Potassium 2.8 mmol/L Critical low 3.5-5.1 Chloride 106 mmol/L Normal 98-107 Carbon Dioxide 27 mmol/L Normal 21-32 Anion Gap 8 mEq/L Normal 8-16 Calcium 8.6 mg/dL Normal 8.5-10.1 Total Protein 6.9 g/dL Normal 6.4-8.2 Albumin 3.1 g/dL Low 3.4-5.0 Globulin 3.8 g/dL Normal 1.9-4.3 Alb/Glob 0.8 ratio Bilirubin,Total 0.3 mg/dL Normal 0.2-1.0 Sgot/Ast 10 U/L Low 15-37 23 SGPT/Alt 24 U/L Normal 12-78 Alkaline Phosphatase 64 U/L Normal 45-117 Path Review: 02/08/2017 [facility] Path Review: TNP [address] [place] [address] [phone] Slide Review 02/08/2017 [facility] Slide Review (SEE NOTE) [address] [place] [address] [phone] CBS W/Automated 02/08/2017 [facility] White Blood 17.3 K/uL High 3.1-10. Diff [address] [place], [place] [id number] [phone] Red Blood Count 4.67 M/uL Normal 3.90-5.40 Hemoglobin 14.0 gm/dL Normal 11.6-15.8 Hematocrit 40.4 % Normal 36.0-46.1 Mean Cell Volume 86.5 fl Normal 80.9-99.0 Mean Corpuscular HGB 30.0 pg Normal 25.9-32.7 Mean Corpuscular HGB Conc 34.7 g/dL High 30.8-34.3 Platelet Count 283 K/uL Normal 150-400 Red Cell Distri Width SD 43.4 fl Normal 3-47 Red Cell Distri Width %CV 14.4 % Normal 11.7-14.4 Mean Platelet Volume 10.8 fL Normal 8.9-12.4 Neut% 61.2 % Normal 40.4-72.8 Lymph % 31.9 % Normal 20.0-42.0 [place] % 5.4 % Normal 4.3-13.2 Eo% 1.4 % Normal 0.0-6.6 Bas% 0.1 % Normal 0.0-1.1 Neut# 10.57 K/uL High 1.8-7.0 Lymph # 5.52 K/uL High 1.0-4.0 [place] # 0.94 K/uL High 0.3-0.9 Eos # 0.25 K/uL Normal 0.0-0.5 Baso # 0.02 K/uL Normal 0.0-0.1 pH Ur Strip.auto 02/08/2017 N2N/CCD Import pH Ur Strip.auto 7.0 6.5-7.5 Urobilinogen Ur 02/08/2017 N2N/CCD Import Urobilinogen Ur 0.2 0.2-1.0 Strip-aCnc Strip-aCnc Urine total 02/08/2017 N2N/CCD Import Urine total Negative Negative bilirubin bilirubin detection by detection by automated test automated test strip Urine hemoglobin 02/08/2017 N2N/CCD Import Urine hemoglobin Trace Negative detection by detection by automated test automated test strip strip Urine glucose 02/08/2017 N2N/CCD Import Urine glucose Negative Negative measurement by measurement by automated test automated test strip strip (mass/volume) Urine appearance 02/08/2017 N2N/CCD Import Urine appearance Clear Clear determination determination Specific gravity 02/08/2017 N2N/CCD Import Specific gravity 1.010 1.010- 1.0 of Urine by of Urine by 30 Automated test Automated test strip strip Prot Ur 02/08/2017 N2N/CCD Import Prot Ur Negative Negative Strip.auto-mCnc Strip.auto-mCnc Nitrite Ur Ql 02/08/2017 N2N/CCD Import Nitrite Ur Ql Negative Negative Strip.auto Strip.auto Leukocyte esterase 02/08/2017 N2N/CCD Import Leukocyte esterase Trace High Negative Ur Ql Strip.auto Ur Ql Strip.auto Ketones Ur 02/08/2017 N2N/CCD Import Ketones Ur Negative Negative Strip.auto-mCnc Strip.auto-mCnc Epithelial cells 02/08/2017 N2N/CCD Import Epithelial cells Very Few None Seen [Presence] in [Presence] in Urine sediment by Urine sediment by L Light microscopy Creat SerPl-mCnc 02/08/2017 N2N/CCD Import Creat SerPl-mCnc 0.8 0.6-1.3 Chloride 02/08/2017 N2N/CCD Import Chloride 106 98-107 SerPl-sCnc SerPl-sCnc Calcium SerPl-mCnc 02/08/2017 N2N/CCD Import Calcium SerPl-mCnc 8.6 8.5- 10.1 Co2 SerPl-sCnc 02/08/2017 N2N/CCD Import Co2 SerPl-sCnc 27 21-32 Blood monocytes 02/08/2017 N2N/CCD Import Blood monocytes 0.94 High 0.3- 0.9 automated count automated count (number/volume) (number/volume) Blood hemoglobin 02/08/2017 N2N/CCD Import Blood hemoglobin 14.0 11.6- 15.8 measurement measurement (mass/volume) (mass/volume) Blood erythrocytes 02/08/2017 N2N/CCD Import Blood erythrocytes 4.67 3.90-5.40 automated count automated count (number/volume) (number/volume) Basophils/leuk NFr 02/08/2017 N2N/CCD Import Basophils/leuk NFr 0.1 0.0- 1.1 Bld Auto Bld Auto Basophils 02/08/2017 N2N/CCD Import Basophils 0.02 0.0-0.1 [#/volume] in [#/volume] in Blood by Automated Blood by Automated count count BUN/Creat SerPl 02/08/2017 N2N/CCD Import BUN/Creat SerPl 17.5 BUN SerPl-mCnc 02/08/2017 N2N/CCD Import BUN SerPl-mCnc 14 7-18 Automated 02/08/2017 N2N/CCD Import Automated 34.7 High 30.8-34.3 erythrocyte mean erythrocyte mean corpuscular corpuscular hemoglobin hemoglobin concentration measurement (mass/volume) Automated 02/08/2017 N2N/CCD Import Automated 30.0 25.9-32.7 erythrocyte mean erythrocyte mean corpuscular corpuscular hemoglobin hemoglobin (mass per erythrocyte) Aspartate 02/08/2017 N2N/CCD Import Aspartate 10 Low 15-37 aminotransferase aminotransferase [Enzymatic [Enzymatic activity/vol activity/volume] in Serum or Plasma Anion Gap 02/08/2017 N2N/CCD Import Anion Gap 8 8-16 SerPl-sCnc SerPl-sCnc Albumin SerPl-mCnc 02/08/2017 N2N/CCD Import Albumin SerPl-mCnc 3.1 Low 3.4-5.0 Albumin/Glob SerPl 02/08/2017 N2N/CCD Import Albumin/Glob SerPl 0.8 Alt SerPl-cCnc 02/08/2017 N2N/CCD Import Alt SerPl-cCnc 24 12-78 Serum or plasma 05/26/2016 N2N/CCD Import Serum or plasma 10 7-18 urea nitrogen urea nitrogen measurement measurement (mass/vo (mass/volume) Serum sodium 05/26/2016 N2N/CCD Import Serum sodium 138 136-145 measurement measurement Automated blood 05/26/2016 N2N/CCD Import Automated blood 5.56 1.8-7.0 lymphocyte count lymphocyte count (number/volume) (number/volume) Automated blood 05/26/2016 N2N/CCD Import Automated blood 253 155-360 platelet count platelet count Anion Gap 05/26/2016 N2N/CCD Import Anion Gap 8 8-16 SerPl-sCnc SerPl-sCnc Automated blood 05/26/2016 N2N/CCD Import Automated blood 11.0 8.9-12.4 platelet mean platelet mean volume measurement volume measurement Automated 05/26/2016 N2N/CCD Import Automated 29.8 25.9-32.7 erythrocyte mean erythrocyte mean corpuscular corpuscular hemoglobin hemoglobin (mass per erythrocyte) Automated blood 05/26/2016 N2N/CCD Import Automated blood 0.04 0.0-0.1 basophil count basophil count (count/volume) (count/volume) Automated 05/26/2016 N2N/CCD Import Automated 33.8 30.8-34.3 erythrocyte mean erythrocyte mean corpuscular corpuscular hemoglobin hemoglobin concentration measurement (mass/volume) Unloinc 05/26/2016 N2N/CCD Import Unloinc . Automated blood 05/26/2016 N2N/CCD Import Automated blood 41.7 36.0- 46.1 hematocrit (volume hematocrit (volume fraction) fraction) Automated 05/26/2016 N2N/CCD Import Automated 88.2 80.9-99.0 erythrocyte mean erythrocyte mean corpuscular volume corpuscular volume Automated blood 05/26/2016 N2N/CCD Import Automated blood 0.11 0.0-0.5 eosinophil count eosinophil count BUN/Creat SerPl 05/26/2016 N2N/CCD Import BUN/Creat SerPl 12.5 Blood erythrocytes 05/26/2016 N2N/CCD Import Blood erythrocytes 4.73 3.90-5.40 automated count automated count (number/volume) (number/volume) Serum carbon 05/26/2016 N2N/CCD Import Serum carbon 33 High 21-32 dioxide dioxide measurement measurement RDW RBC Auto-Rto 05/26/2016 N2N/CCD Import RDW RBC Auto-Rto 14.1 11.7- 14.4 Blood hemoglobin 05/26/2016 N2N/CCD Import Blood hemoglobin 14.1 11.6- 15.8 measurement measurement (mass/volume) (mass/volume) Blood leukocytes 05/26/2016 N2N/CCD Import Blood leukocytes 11.9 High 3.1 -10.7 automated count automated count (number/volume) (number/volume) Serum or plasma 05/26/2016 N2N/CCD Import Serum or plasma 9.1 8.5-10.1 calcium calcium measurement measurement (mass/volume) (mass/volume) Basophils/leuk NFr 05/26/2016 N2N/CCD Import Basophils/leuk NFr 0.3 0.0- 1.1 Bld Auto Bld Auto Serum or plasma 05/26/2016 N2N/CCD Import Serum or plasma 0.8 0.6-1.3 creatinine creatinine measurement measurement (mass/volum (mass/volume) Monocytes/leuk NFr 05/26/2016 N2N/CCD Import Monocytes/leuk NFr 7.8 4.3- 13.2 Bld Auto Bld Auto Lymphocytes/leuk 05/26/2016 N2N/CCD Import Lymphocytes/leuk 46.9 High 17.0-46.1 NFr Bld Auto NFr Bld Auto RDW RBC Auto 05/26/2016 N2N/CCD Import RDW RBC Auto 44.1 3-47 Chloride 05/26/2016 N2N/CCD Import Chloride 97 Low 98-107 SerPl-sCnc SerPl-sCnc Serum or plasma 05/26/2016 N2N/CCD Import Serum or plasma 85 74-106 glucose glucose measurement measurement (mass/volume) (mass/volume) Potassium 05/26/2016 N2N/CCD Import Potassium 3.4 Low 3.5-5.1 SerPl-sCnc SerPl-sCnc Eosinophil/leuk 05/26/2016 N2N/CCD Import Eosinophil/leuk 0.9 0.0-6.6 NFr Bld Auto NFr Bld Auto Neutrophils # Bld 05/26/2016 N2N/CCD Import Neutrophils # Bld 5.22 1.8- 7.0 Auto Auto Neutrophils/leuk 05/26/2016 N2N/CCD Import Neutrophils/leuk 44.1 40.4- 72.8 NFr Bld Auto NFr Bld Auto Blood monocytes 05/26/2016 N2N/CCD Import Blood monocytes 0.92 High 0.3- 0.9 automated count automated count (number/volume) (number/volume) Aot Request 05/25/2016 [facility] Aot Request Test(s) Normal 26, [address] added [address] [place] [address] [phone] Tests to be added: TSH Hgb A1c MFr Bld 05/25/2016 N2N/CCD Import Hgb A1c MFr Bld 6.3 4.2-6.3 TSH SerPl-aCnc 05/25/2016 N2N/CCD Import TSH SerPl-aCnc 0.66 0.30-4.20 * Miscellaneous 05/25/2016 N2N/CCD Import * Miscellaneous Test(s) studies (set) studies (set) added Blood glucose mean 05/25/2016 N2N/CCD Import Blood glucose mean 134 value measurement value measurement estimated fro estimated from glycated hemoglobin (mass/volume) Blood 05/24/2016 N2N/CCD Import Blood 0-1+ poikilocytosis poikilocytosis detection by light detection by light microscopy microscopy Blood anisocytosis 05/24/2016 N2N/CCD Import Blood anisocytosis 0-1+ detection by light detection by light microscopy microscopy Neuts Band/leuk NFr 05/24/2016 N2N/CCD Import Neuts Band/leuk NFr 2 0-8 Bld Manual Bld Manual Monocytes/100 05/24/2016 N2N/CCD Import Monocytes/100 5 0-10 leukocytes in Blood leukocytes in Blood by Manual count by Manual count Neuts Seg/leuk NFr 05/24/2016 N2N/CCD Import Neuts Seg/leuk NFr 29 Low 33 -73 Bld Manual Bld Manual Capillary blood 05/24/2016 N2N/CCD Import Capillary blood 204 High 70- 110 glucose measurement glucose measurement by glucometer by glucometer (mass/volume) Total Cells Counted 05/24/2016 N2N/CCD Import Total Cells Counted 100 Bld Bld Blood polychromasia 05/24/2016 N2N/CCD Import Blood polychromasia 0-1+ detection by light detection by light microscopy microscopy Alt SerPl-cCnc 05/24/2016 N2N/CCD Import Alt SerPl-cCnc 38 12-78 Blood platelet 05/24/2016 N2N/CCD Import Blood platelet Normal adequacy detection adequacy detection by light microsc by light microscopy Albumin/Glob SerPl 05/24/2016 N2N/CCD Import Albumin/Glob SerPl 0.9 Lymphocytes 05/24/2016 N2N/CCD Import Lymphocytes 3 0-7 variant/100 variant/100 leukocytes in blood leukocytes in blood by man by manual count Globulin Ser 05/24/2016 N2N/CCD Import Globulin Ser 3.7 1.9-4.3 Calc-mCnc Calc-mCnc Eosinophil % 05/24/2016 N2N/CCD Import Eosinophil % 3 0-5 Manual blood band 05/24/2016 N2N/CCD Import Manual blood band 2 0-8 neutrophils neutrophils form/100 leukocytes form/100 leukocytes Manual blood 05/24/2016 N2N/CCD Import Manual blood 29 Low 33-73 segmented segmented neutrophils/100 neutrophils/100 leukocytes leukocytes Fibrin D-dimer Feu 05/24/2016 N2N/CCD Import Fibrin D-dimer Feu 0.39 measurement in measurement in platelet poor pl platelet poor plasma (mass/volume) Manual blood 05/24/2016 N2N/CCD Import Manual blood 3 0-7 variant lymphocytes variant lymphocytes as percentage of as percentage of leukocytes Review by 05/24/2016 N2N/CCD Import Review by Indicated pathologist pathologist ,Slide Sent Hematologic slide 05/24/2016 N2N/CCD Import Hematologic slide Indicated review by review by ,Slide pathologist pathologist Sent Serum or plasma 05/24/2016 N2N/CCD Import Serum or plasma 3.4 3.4-5.0 albumin measurement albumin measurement (mass/volume) (mass/volume) Serum or plasma 05/24/2016 N2N/CCD Import Serum or plasma 72 45-117 alkaline alkaline phosphatase phosphatase measurement ( measurement (enzymatic activity/volume) Serum or plasma 05/24/2016 N2N/CCD Import Serum or plasma 26 15-37 aspartate aspartate aminotransferase aminotransferase measure measurement (enzymatic activity/volume) Serum or plasma 05/24/2016 N2N/CCD Import Serum or plasma 7.1 6.4-8.2 protein measurement protein measurement (mass/volume) (mass/volume) Lymphocytes/100 05/24/2016 N2N/CCD Import Lymphocytes/100 58 High 17-56 leukocytes in Blood leukocytes in Blood by Manual coun by Manual count Serum or plasma 05/24/2016 N2N/CCD Import Serum or plasma 0.2 0.2-1.0 total bilirubin total bilirubin measurement (mass/ measurement (mass/volume) Laboratory test 06/14/2015 N2N/CCD Import Alanine 24 12-78 finding Aminotransferase (Alt/SGPT) Albumin 3.5 3.4-5.0 Albumin/Globulin Ratio 0.9 Alkaline Phosphatase 68 45-117 Anion Gap 5 Low 8-16 Aspartate Amino Transf (Ast/Sgot) 14 Low 15-37 BUN/Creatinine Ratio 11.4 Basophils # (Auto) 0.02 0.0-0.1 Basophils (%) (Auto) 0.2 0.0-1.1 Blood Urea Nitrogen 8 7-18 Calcium Level 8.8 8.5-10.1 Carbon Dioxide Level 31 21-32 Chloride Level 101 98-107 Creatinine 0.7 0.6-1.3 Eosinophils # (Auto) 0.17 0.0-0.5 Eosinophils (%) (Auto) 2.0 0.0-6.6 Globulin 3.8 1.9-4.3 Glucose Screen 86 74-106 Hematocrit 41.2 36.0-46.1 Hemoglobin 14.3 11.6-15.8 Lipase 160 73-393 Lymphocytes # (Auto) 3.72 1.8-7.0 Lymphocytes (%) (Auto) 43.6 17.0-46.1 Mean Corpuscular Hemoglobin 30.1 25.9-32.7 Mean Corpuscular Hemoglobin Concent 34.7 High 30.8-34.3 Mean Corpuscular Volume 86.7 80.9-99.0 Mean Platelet Volume 10.3 8.9-12.4 Monocytes # (Auto) 0.75 0.3-0.9 Monocytes (%) (Auto) 8.8 4.3-13.2 Neutrophils # (Auto) 3.87 1.0-7.0 Neutrophils (%) (Auto) 45.4 40.4-72.8 Platelet Count 297 155-360 Potassium Level 3.1 Low 3.5-5.1 RDW Coefficient of Variation 13.7 11.7-14.4 Red Blood Count 4.75 3.90-5.40 Red Cell Distribution Width 41.9 3-47 Sodium Level 137 136-145 Total Bilirubin 0.4 0.2-1.0 Total Protein 7.3 6.4-8.2 Urine Amorphous Sediment Small Negative Urine Bilirubin Negative Negative Urine Blood Large High Negative Urine Clarity Clear Clear Urine Color Yellow Yellow Urine Epithelial Cells None Seen None Seen Urine Glucose (Ua) Negative Negative Urine Ketones Negative Negative Urine Leukocyte Esterase Trace High Negative Urine Nitrite Negative Negative Urine Protein Negative Negative Urine Urobilinogen 0.2 0.2-1.0 Urine WBC None Seen 0-7 Urine pH 6.5 6.5-7.5 White Blood Count 8.5 3.1-10.7 1 I50.33 2 Note: Persistent reduction for 3 months or more in an eGFR <60 mL/min/1.73 m2 defines CKD. Patients with eGFR values >/=60 mL/min/1.73 m2 may also have CKD if evidence of persistent proteinuria is present. The original MDRD equation for estimated GFR is not valid for patients less than 18 years of age. Additional information may be found at www.kdoqi.org. 3 SOB, WHEEZING,WEIGHT GAIN, SENT BY PATEL 4 Tests: serum hcg Instructions: 5 E78.2 E11.65 6 I10,E87.6,R25.2,M79.631,M25.50,M79.639,R53.82 7 Method: Sediplast Modified Westergren 8 Note: Persistent reduction for 3 months or more in an eGFR <60 mL/min/1.73 m2 defines CKD. Patients with eGFR values >/=60 mL/min/1.73 m2 may also have CKD if evidence of persistent proteinuria is present. The original MDRD equation for estimated GFR is not valid for patients less than 18 years of age. Additional information may be found at www.kdoqi.org. 9 Values below the stated reference ranges of AST and ALT can be seen in normal populations. Clinical correlation is suggested. 10 Negative <20 Weak positive 20 - 39 Moderate positive 40 - 59 Strong positive >59 11 Performed at: - [facility] [address] [id number] Learning Program Manager: Tu Yang MD, Phone: [phone] Performed at: - [facility] [address] [id number] Learning Program Manager: Ines Panda MD, Phone: [phone] Reference Guidelines*: Desirable: ........... < 200 mg/dL Borderline High: ..... 200-239 mg/dL High: ................ >=240 mg/dL * The National Cholesterol Education Program (NCEP) 13 Reference Guidelines*: Normal: ............. < 150 mg/dL Borderline High: .... 150-199 mg/dL High: ............... 200-499 mg/dL Very High: .......... > 500 mg/dL * Source: National Cholesterol Education Program (NCEP) 14 Reference Guidelines*: Low HDL: ..... < 40 mg/dL Normal: ..... 40-60 mg/dL Desirable: ... > 60 mg/dL *The National Cholesterol Education Program(NCEP) 15 Reference Guidelines*: Optimal:........... <100 mg/dL Near Optimal....... 100-129 mg/dL Borderline High.... 130-159 mg/dL High............... 160-189 mg/dL Very High.......... >=190 mg/dL * Source: National Cholesterol Education Program (NCEP) 16 Elevated levels of HbA1c suggest the need for more aggressive treatment of glycemia. The [place] [employer] recommends that a primary goal of therapy should be a HbA1c of <7% and that physicians should re-evaluate the treatment regimen in patients with HbA1c values consistently >8%. 17 Instrument flagged sample for slide review. Less than 10% Bands seen, no other immature WBC's seen. RBC morphology essentially normal. Platelet estimate= Normal 18 CHEST PAIN 19 URINE, CLEAN CATCH 20 CHECKED CALLED K TO PRINCE PinaRN AT 0237 02/08/17 by [facility] NO BLUE OR SST 21 0.0 - 0.045 ng/mL: Normal 0.046 - 0.5 ng/mL: Suggestive 0.6 - 1.5 ng/mL: Consistent 22 Note: Persistent reduction for 3 months or more in an eGFR <60 mL/min/1.73 m2 defines CKD. Patients with eGFR values >/=60 mL/min/1.73 m2 may also have CKD if evidence of persistent proteinuria is present. The original MDRD equation for estimated GFR is not valid for patients less than 18 years of age. Additional information may be found at www.kdoqi.org. 23 Values below the stated reference ranges of AST and ALT can be seen in normal populations. Clinical correlation is suggested. 24 PREVIOUS PATH REVIEW FOR #LYMPHS >5.0 25 Instrument flagged sample for slide review. Less than 10% Bands seen, no other immature WBC's seen. RBC morphology essentially normal. Platelet estimate=NORMAL 26 CP, HTN, SMOKING 27 Tests: TSH Instructions: Procedures Date Code Description Status 12/21/2018 82231 EKG-Tracing And Report Completed 08/19/201833508 Asp./Injection major joint Completed 08/19/201810632 Injection, Tendon Origin/Insertion Completed 04/28/201830211 Asp./Injection major joint Completed 03/16/2018 28223 Theraputic Or Diagnostic Injection Completed 03/16/2018 45484 EKG-Tracing And Report Completed 01/27/201824804 Aspiration/Injection joint Completed intermediate(wrist/ankle/elbow/olbursa 01/27/201871868 Asp./Injection major joint Completed 01/27/2018 09303 Radiology, Shoulder: Two Views (Sso) Completed 01/27/2018 48023 Radiology, Shoulder: Two Views (Sso) Completed 01/27/2018 15985 Radiology, Elbow: Two Views Completed 01/27/2018 51535 Radiology, Elbow: Two Views Completed 10/28/201712890 Asp./Injection major joint Completed 10/28/201776940 Aspiration/Injection joint Completed intermediate(wrist/ankle/elbow/olbursa 07/29/201733911 Asp./Injection major joint Completed 07/29/2017 Injection, Tendon Origin/Insertion Completed 02/01/2017 Asp./Injection major joint Completed 02/01/2017 Injection, Tendon Origin/Insertion Completed 10/29/2016 Aspiration/Injection joint Completed intermediate(wrist/ankle/elbow/olbursa 10/29/201686977 Asp./Injection major joint Completed 07/16/2016 Asp./Injection major joint Completed 07/16/201622540 Injection:Tendon Sheath,Lig. Cyst Completed 06/28/2016 93293051 Mammogram Completed 05/25/2016 63166 Echocardiogram Complete Completed 03/27/201661127 Asp./Injection major joint Completed 03/27/201673838 Injection:Tendon Sheath,Lig. Cyst Completed 01/27/2016 Asp./Injection major joint Completed 01/27/2016 Injection, Tendon Origin/Insertion Completed 08/26/2015 Injection, Tendon Origin/Insertion Completed 08/22/2015 Injection, Tendon Origin/Insertion Completed 08/02/2015 98019 ECHO Transthoracic Inc Performance Continuous Completed Electrocardio 07/15/2015 81665 EKG-Tracing And Report Completed 01/30/2015 03621 EKG Interpretation And Report Only Completed 11/24/2013 70272 EKG Interpretation And Report Only Completed 05/11/2013 75210 EKG-Tracing And Report Completed 07/12/2011 17338 Echocardiogram Complete Completed 05/09/2010 23988 Radiology, Distal Femur--Knee 1 Or 2 Views Completed Encounters Type Date Location Provider Dx Diagnosis Office Visit 12/21/2018 Cardiology Office Khari Sweeney R07.9 Chest pain, 7:00a Cadence Treadwell, FACC unspecified R68.84 Jaw pain R00.2 Palpitations Office Visit 03/16/2018 11:30a Cardiology Office Shakila Arteaga I50.33 Acute on chronic diastolic (congestive) heart failure E66.01 Morbid (severe) obesity due to excess calories Office Visit 01/27/2018 Orthopaedic Shankar M77.12 Lateral 4:15p Office TEOFILO Sandhu epicondylitis, left elbow M75.42 Impingement syndrome of left shoulder M77.01 Medial epicondylitis, right elbow M75.41 Impingement syndrome of right shoulder M77.12 Lateral epicondylitis, left elbow M25.511 Pain in right shoulder M25.521 Pain in right elbow M77.01 Medial epicondylitis, right elbow Office Visit 10/28/2017 Jessika Varela77.12 Lateral 4:30p Office Cadence Guzman epicondylitis, left elbow M75.42 Impingement syndrome of left shoulder Office Visit 07/29/2017 1:00p Primary Care Cyndie Wade, E78.2 Mixed hyperlipidemia Office MD I10 Essential (primary) hypertension E66.09 Other obesity due to excess calories E11.65 Type 2 diabetes mellitus with hyperglycemia L71.9 Rosacea, unspecified Office Visit 07/29/2017 Jessika Varela77.12 Lateral 4:15p Office Cadence Guzman epicondylitis, left elbow M75.42 Impingement syndrome of left shoulder Office Visit 02/23/2017 11:00a Primary Care Cyndie Wade, 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, lumbar region M79.639 Pain in unspecified forearm E78.2 Mixed hyperlipidemia I10 Essential (primary) hypertension E66.09 Other obesity due to excess calories Office Visit 02/01/2017 Robin Varela.12 Lateral 9:30a Office Cadence Guzman epicondylitis, left elbow M75.42 Impingement syndrome of left shoulder Office Visit 07/16/2016 Robin Varela.12 Lateral 1:30p Office Cadence Guzman epicondylitis, left elbow M75.42 Impingement syndrome of left shoulder Office Visit 06/09/2016 10:00a Cardiology Office Liz Cortez I50.32 Chronic diastolic A., ANP (congestive) heart failure J44.1 Chronic obstructive pulmonary disease w (acute) exacerbation R07.9 Chest pain, unspecified I10 Essential (primary) hypertension E78.2 Mixed hyperlipidemia R06.02 Shortness of breath F17.210 Nicotine dependence, cigarettes, uncomplicated Office Visit 05/25/2016 10:56a Cardiology Office Shakila Arteaga R07.9 Chest pain, MD unspecified I50.42 Chronic combined systolic and diastolic hrt fail Office Visit 01/27/2016 Jessika Varela77.12 Lateral 9:00a Office Cadence Guzman epicondylitis, left elbow M75.42 Impingement syndrome of left shoulder Office Visit 08/22/2015 Lynsey Ngo, M77.12 Lateral 2:15p Office Cadence Guzman epicondylitis, left elbow M75.42 Impingement syndrome of left shoulder Office Visit 07/15/2015 11:20a Cardiology Office Liz Cortez R07.9 Chest pain, A., ANP unspecified R06.02 Shortness of breath E78.2 Mixed hyperlipidemia I10 Essential (primary) hypertension Office Visit 01/31/2015 Cardiology Shakila Arteaga, 786.50 Pain Chest Unspec 1:44p Office Office Visit 09/12/2014 [place] Zbigniew, 009.1 Colitis Enteritis & 1:22p [facility] Cadence Castell[facility] Presumed Infectious Orig Office Visit 09/11/2014 [place] Zbigniew, 009.1 Colitis Enteritis & 1:19p [facility] Aureliano Castellanos M.D. [facility]astro[facility] Presumed Infectious Orig Office Visit 01/31/2014 Cardiology Moody Hemphill 786.05 Shortness Of Breath 10:20a Office MD Valeria, PhD 789.00 Pain Abdominal Unspec Site 401.1 Hypertension Benign Office Visit 11/30/2013 3:07p [facility] Son Morton 789.00 Pain Abdominal [facility] J., DO Unspec Site Office Visit 11/30/2013 11:00a Cardiology Office Liz Cortez, 789.9 Abdomen & ANP Pelvis Symptoms Other 786.50 Pain Chest Unspec Office Visit 11/25/2013 3:27p [place] Ted 562.11 Diverticulitis Colon Angel Carlin M.D. [facility] 786.50 Pain Chest Unspec 250.00 Diabetes Mellitus W/O Compl Type II Or Unspec Controlled Office Visit 11/24/2013 [place] Marina 562.11 Diverticulitis Colon 3:24p Angel Lama M.D. 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 The pain she describes is quite typical. I will order a HwirlglqP10.84 Jaw painComments:This is part of the symptoms she has during the palpitations. She will have a Lexiscan.R00.2 PalpitationsNew Medication:Metoprolol Succinate ER 50 mg - 1 by mouth every dayComments:She tells me that her Holter showed SVT. The report is pending. She describes onset and offset of very rapid palpitations. I will empirically start treating her as SVT. I will switch from Carvedilol toMetoprolol which is a better medication to slow the heart. In addition, she will start flecainide 100 mg bid. She will return after the stress test and the echocardiogram.AllFollow up:After studies are completed.
--- OUTSIDE RECORDS SUMMARY | 2019-01-03 19:27 | XMS REPORT | Continuity of Care Document ---
:1970 External Reference #:[id number] Author Name Indy Angel NP Address [address] [place] [id number] Care Team Providers Name Role Phone Dianelys Alegre MD Primary Care Physician Unavailable Payers Date Identification Numbers Payment Provider Subscriber Policy Number: [employer] ([facility]) Tamara Gilmore PayID: [id number] [address] [place] [address] Family History Date Family Member(s) Observation Comments Father Father [place] Mother Mother [place] Mother Stroke Social History Type Date Description Comments Sex Female Education Highest level completed, Associates Degree Tobacco Use Reviewed: 12/22/18 Never Smoked Cigars Tobacco Use Reviewed: 12/22/18 Never Smoked A Pipe Smoking Status Reviewed: 12/22/18 Never Smoked A Pipe Tobacco Use Reviewed: 12/22/18 Never Used Smokeless Tobacco ETOH Use 12/22/2018 Denies alcohol use Recreational Drug Use 12/22/2018 Denies Drug Use Tattoo/Piercing Piercings professionally done Tattoo/Piercing Tattoos professionally done UNKNOWN 12/22/2018 Never E-Cigarette user Allergies, Adverse Reactions, Alerts Active Allergies Reaction Severity Comments Date Amoxicillin Hives Moderate 12/22/2018 Cataflam Difficulty breathing, Difficulty Severe 12/22/2018 swallowing, Unconsciousness Medications Active Medications SIG Qnty Indications Ordering Provider Date Fluoxetine HCL Unknown Pravastatin Sodium Unknown Spironolactone Unknown Ondansetron Unknown Zantac 150 Maximum Strength Unknown Potassium Chloride Unknown Torsemide Unknown Coreg Unknown Buspirone HCL Unknown Fentanyl Unknown Robaxin Unknown Gabapentin Unknown Mometasone Furoate Unknown Vital Signs Date Vital Result Comment 12/22/2018 3:56pm BP Systolic 124 mmHg BP Diastolic 80 mmHg Height 65 inches 5'5" Weight 269.00 lb BMI (Body Mass Index) 44.8 kg/m2 Results Test Date Facility Test Result H/L Range Note Laboratory test 12/22/2018 [facility] W/RFX To Titer & <pending> finding Confirmation Wet Prep.... 12/22/2018 [facility] WBC Smear 0 Clue Cells Vag Fluid Wet Prep 0 Felicita Wet Prep 0 Lactobacillus Wet Prep few Whiff Wet Prep neg. Bacteria Wet Prep n/a PH Wet Prep 4.5 Misc Other Test no trich Laboratory test finding 12/22/2018 [facility] Test Urine..... negative Plan of Treatment Future Appointment(s):01/05/2019 10:30 am - RN Schedule at [facility]12/22/2018 - Indy Angel, NPZ11.3 Encounter for screening for infections with a predominantlyComments:Reviewed STD risks and prevention with patient. Patient states understanding. Advised patient to abstain from sex at this time or to use condoms to decrease her risk of STDs as she does not feel that she can trust her at this time.Z30.09 Encounter for other general counseling and advice on contracComments:Lengthy discussion with patient regarding perimenopause. Advised that she will be in menopause when she has had no bleeding for one year. Advised her that she is still at risk of . [facility] 3 daysago. Discussed Plan B but due to her contraindication to hormones, decision was jointly made to defer Plan B. Patient plans to f/u with PCP regarding her ovarian cyst follow up and to further discuss her scanty menses.Follow up:2 weeks UPT with RNN84.3 Polyp of vulvaComments:Lesion may by condyloma but due to size, will refer to MD OPHTHALMOLOGIST for evaluation, possible vulvar colposcopy and treatment.Z12.4 Encounter for screening for malignant neoplasm of vpmybnU37.02 Encounter for test, result negative
[2019-01-03 19:30] VITALS: BP 122/72
--- NOTE | 2019-01-04 08:40 | UC ---
- Progress Note Progress Note: xray report left knee: IMPRESSION: NO ACUTE OSSEOUS INJURY. IF SYMPTOMS PERSIST, RECOMMEND REPEAT IMAGING. Course/Dx - Diagnoses Provider Diagnoses: Left knee pain Discharge - Sign-Out/Discharge Documenting (check all that apply): Patient Departure All imaging exams completed and their final reports reviewed: Yes - Discharge Plan Condition: Stable Disposition: HOME Patient Education Materials: Knee Pain (ED) Referrals: Montse Carolina MD [Medical Doctor] - 2 Weeks Dianelys Alegre MD [Primary Care Provider] - Additional Instructions: If you develop a fever, shortness of breath, chest pain, new or worsening symptoms - please call your PCP or go to the ED immediately. 1) Rest, elevate, and ice your knee intermittently throughout the day to reduce pain and swelling 2) Please call Physical therapy to schedule an appointment for treatment 3) Please call Orthopedics at the number below to schedule an appointment for further evaluation within 2 weeks - Billing Disposition and Condition Condition: STABLE Disposition: Home
== END 2019-01-03 20:17 | disposition home or self-care (01) ==
LOC: UCCORT 19:20
DX: M25.562 Pain in left knee (principal); I10 Essential (primary) hypertension; G89.29 Other chronic pain; M54.9 Dorsalgia, unspecified; Z88.0 Allergy status to penicillin; Z88.8 Allergy status to other drugs, medicaments and biological substances; F17.210 Nicotine dependence, cigarettes, uncomplicated
CPT/HCPCS: 99211; G0463

== ENCOUNTER 2020-04-11 10:41 | Observation (INO) ==
[~2020-04-11 10:41] MED LIST: Buffered Lidocaine 1% SYRIN 1 ml INTRADERM ONE; Famotidine IV 10 MG/ML 2 ml VIAL (20 mg) IV ONE; Lactated Ringers 1000 ml BAG 1,000 ML IV SCH; Sodium Citrate/Citric Acid LIQ 15 ML UDC PO ONE
[2020-04-11] MEDS ORDERED: Sodium Citrate/Citric Acid LIQ 15 ML UDC ONE (10:53)
[2020-04-11] MEDS ORDERED: ceFAZolin 1 GM ADVAN 1 GM ADDV.VIAL IVPB ONE (10:54)
[2020-04-11] MEDS ORDERED: Famotidine IV 10 MG/ML 2 ml VIAL (20 mg) ONE (10:54)
[2020-04-11] MEDS ORDERED: ceFAZolin 2 GM PREMIX 2 GM/50 ML BAG ONE (10:54)
[2020-04-11] MEDS ORDERED: Buffered Lidocaine 1% SYRIN 1 ml INTRADERM ONE (10:54)
[2020-04-11] MEDS ORDERED: Lidocaine 2% PF 5 ML VIAL ONE ×2 (11:09→13:53)
[2020-04-11] MEDS ORDERED: Dexamethasone IV 4 MG/ML VIAL 1 ml VIAL ONE (11:11)
[2020-04-11] MEDS ORDERED: Ondansetron 4 mg VIAL 2 MG/ML 2 ml VIAL ONE (11:11)
[2020-04-11] MEDS ORDERED: Lidocaine 1% MPF 5 ML VIAL ONE (12:58)
[2020-04-11] MEDS ORDERED: ROPIVACAINE 5 MG/ML 30 ML BTL (0.5%) ONE ×2 (12:58→13:00)
[2020-04-11] MEDS ORDERED: Propofol 10 mg/ml 100 ML BTL 100 ML ONE (12:59)
[2020-04-11] MEDS ORDERED: Midazolam 5 mg/5 ml VIAL 1 mg/ml 5 ml VIAL (5 mg) ONE (12:59)
[2020-04-11] MEDS ORDERED: Midazolam 2 mg/2 ml VIAL 1 mg/ml 2 ml VIAL (2 mg) ONE (13:39)
[2020-04-11] MEDS ORDERED: Propofol 10 MG/ML 20 ML BTL ONE (15:18)
[2020-04-11] MEDS ORDERED: diPHENhydraMINE IV 50 MG/ML 1 ml VIAL (BENADRYL) IV PRN (16:28)
[2020-04-11] MEDS ORDERED: Lactulose 30 ml UDC PO PRN (16:28)
[2020-04-11] MEDS ORDERED: Morphine 2 MG/ML SYRINGE IV PRN (16:28)
[2020-04-11] MEDS ORDERED: Ondansetron 4 mg VIAL 2 MG/ML 2 ml VIAL IV PRN (16:28)
[2020-04-11] MEDS ORDERED: diPHENhydraMINE 25 mg TAB PO PRN (16:28)
[2020-04-11] MEDS ORDERED: Magnesium Hydroxide LIQ 30 ML UDC PO PRN (16:28)
[2020-04-11] MEDS ORDERED: Ondansetron ODT 4 mg TAB 4 MG TAB PO PRN (16:28)
[2020-04-11] MEDS ORDERED: Morphine 4 MG/ML VIAL (1 ml) ONE (16:49)
[2020-04-11] MEDS ORDERED: Lactated Ringers 1000 ml BAG 1,000 ML IV SCH (17:00)
[2020-04-11] MEDS ORDERED: HYDROmorphone 1 MG/1 ML SYRINGE ONE (18:29)
[2020-04-11] MEDS ORDERED: fentaNYL PATCH 25 MCG/HR 1 PATCH TRANSDERM SCH (18:30)
[2020-04-11] MEDS: fentaNYL Patch Check Q Shift NOTE FOLLOW UP SCH (19:04)
[2020-04-11 19:12] LABS: BUN/Creatinine Ratio 13.9 (8-20); Calcium 9.4 mg/dL (8.6-10.3); EGFR African American 105.1 (>60); EGFR Non-African American 86.8 (>60); Magnesium 1.7 mg/dL (1.9-2.7); Potassium 4.1 mmol/L (3.5-5.0)
[2020-04-11] MEDS: oxyCODONE/Acetamin 5/325 mg TAB PO PRN (19:54)
[2020-04-11] MEDS: Magnesium Hydroxide LIQ 30 ML UDC PO SCH (19:56)
[2020-04-11] MEDS: Clindamycin 600 MG/D5W BAG 600 MG/50 ML BAG IV SCH (19:57)
[2020-04-11] MEDS: HYDROmorphone 1 MG/1 ML SYRINGE IV SLOW PU PRN (22:29)
[2020-04-12] MEDS: oxyCODONE/Acetamin 5/325 mg TAB PO PRN ×3 (00:22→09:31)
[2020-04-12] MEDS: HYDROmorphone 1 MG/1 ML SYRINGE IV SLOW PU PRN ×2 (03:10→07:50)
[2020-04-12] MEDS: Clindamycin 600 MG/D5W BAG 600 MG/50 ML BAG IV SCH ×2 (03:14→11:47)
[2020-04-12 06:20] LABS: Hematocrit 43 % (35-47); Hemoglobin 14.1 g/dL (12.0-16.0); Mean Platelet Volume 8.8 fL (7.4-10.4); Platelet Count 297 10^3/uL (150-450)
[2020-04-12 06:44] LABS: BUN/Creatinine Ratio 10.3 (8-20); Calcium 9.6 mg/dL (8.6-10.3); EGFR African American 95.8 (>60); EGFR Non-African American 79.2 (>60)
[2020-04-12] MEDS: fentaNYL Patch Check Q Shift NOTE FOLLOW UP SCH (07:03)
[2020-04-12] MEDS ORDERED: Magnesium Sulfate 2 gm BAG 2 GM/50 ML BAG IVPB ONE (07:48)
[2020-04-12] MEDS ORDERED: Nicotine PATCH 21 MG/24 HR PATCH TRANSDERM SCH (08:00)
[2020-04-12] MEDS ORDERED: Vitamin THERAPEUTIC TAB PO SCH (09:00)
[2020-04-12] MEDS ORDERED: Potassium Chlor 20 meq TAB.ER PO SCH (09:00)
[2020-04-12] MEDS: Magnesium Hydroxide LIQ 30 ML UDC PO SCH (09:37)
[2020-04-12 12:02] VITALS: BP 144/70
== END 2020-04-12 13:05 | disposition home or self-care (01) ==
LOC: OR 10:41 → SSU 10:41
PROVIDERS: ADMIT Orthopaedic Surgery Adult Reconstructive Orthopaedic Surgery; ATTEND Orthopaedic Surgery Adult Reconstructive Orthopaedic Surgery

== ENCOUNTER 2020-10-10 11:54 | Observation (INO) ==
[~2020-10-10 11:54] MED LIST changes: +Dexamethasone IV 4 MG/ML VIAL 1 ml VIAL ONE; -Famotidine IV 10 MG/ML 2 ml VIAL (20 mg) IV ONE; +Lidocaine 2% PF 5 ML VIAL ONE; +Ondansetron 4 mg VIAL 2 MG/ML 2 ml VIAL ONE; +Phenylephrine IV 10 MG/ML 1 ml VIAL ONE; +Propofol 10 MG/ML 20 ML BTL ONE; -Sodium Citrate/Citric Acid LIQ 15 ML UDC PO ONE; +ceFAZolin 1 GM ADVAN 1 GM ADDV.VIAL IVPB ONE; +ceFAZolin 2 GM PREMIX 2 GM/50 ML BAG ONE
[2020-10-10] MEDS ORDERED: Buffered Lidocaine 1% SYRIN 1 ml INTRADERM ONE (12:07)
[2020-10-10] MEDS ORDERED: fentaNYL 100 mcg/2 ml 50 MCG/ML VIAL ONE ×3 (13:12→18:36)
[2020-10-10] MEDS ORDERED: Midazolam 5 mg/5 ml VIAL 1 mg/ml 5 ml VIAL (5 mg) ONE (13:13)
[2020-10-10] MEDS ORDERED: Ketamine HCL 50 mg/ml 10 ml VIAL (500 MG) ONE (13:17)
[2020-10-10] MEDS ORDERED: Glycopyrrolate IV 0.2 MG/ML 1 ML VIAL ONE (15:15)
[2020-10-10] MEDS ORDERED: EPHEDrine (Pressors) 50 MG/ML VIAL ONE (15:17)
[2020-10-10] MEDS ORDERED: Phenylephrine 40 mcg/mL 10mL (400mcg) SYRINGE ONE ×2 (15:20→16:06)
[2020-10-10] MEDS ORDERED: diPHENhydraMINE IV 50 MG/ML 1 ml VIAL (BENADRYL) IV PRN ×2 (15:29→16:28)
[2020-10-10] MEDS ORDERED: Naloxone 0.4 mg VIAL 0.4 mg/ml 1 ml VIAL IV PRN ×3 (15:29→18:52)
[2020-10-10] MEDS ORDERED: Dexamethasone IV 4 MG/ML VIAL 1 ml VIAL ONE (16:06)
[2020-10-10] MEDS ORDERED: Ondansetron 4 mg VIAL 2 MG/ML 2 ml VIAL ONE (16:06)
[2020-10-10] MEDS ORDERED: Esmolol 10 MG/ML 10 ML (100 mg) ONE (16:08)
[2020-10-10] MEDS ORDERED: Lactulose 30 ml UDC PO PRN (16:28)
[2020-10-10] MEDS ORDERED: Magnesium Hydroxide LIQ 30 ML UDC PO PRN (16:28)
[2020-10-10] MEDS ORDERED: Ondansetron 4 mg VIAL 2 MG/ML 2 ml VIAL IV PRN (16:28)
[2020-10-10] MEDS ORDERED: diPHENhydraMINE 25 mg TAB PO PRN (16:28)
[2020-10-10] MEDS ORDERED: Morphine 2 MG/ML SYRINGE IV PRN (16:28)
[2020-10-10] MEDS ORDERED: oxyCODONE/Acetamin 5/325 mg TAB PO PRN (16:28)
[2020-10-10] MEDS ORDERED: Ondansetron ODT 4 mg TAB 4 MG TAB PO PRN (16:28)
[2020-10-10] MEDS ORDERED: Lactated Ringers 1000 ml BAG 1,000 ML IV SCH (17:00)
[2020-10-10] MEDS ORDERED: HYDROmorphone 1 MG/1 ML SYRINGE ONE ×2 (17:47→18:17)
[2020-10-10] MEDS: fentaNYL 100 mcg/2 ml 50 MCG/ML VIAL IV PRN ×5 (18:20→18:49)
[2020-10-10] MEDS ORDERED: DiMENhydriNATE IV 50 mg/ml 1 ml VIAL IV PUSH PRN (18:32)
[2020-10-10] MEDS: HYDROmorphone 1 MG/1 ML SYRINGE IV PRN ×2 (18:34→18:45)
[2020-10-10] MEDS ORDERED: fentaNYL 100 mcg/2 ml 50 MCG/ML VIAL IV PRN (18:52)
[2020-10-10] MEDS ORDERED: fentaNYL PATCH 25 MCG/HR 1 PATCH TRANSDERM SCH (21:00)
[2020-10-10] MEDS: fentaNYL Patch Check Q Shift NOTE FOLLOW UP SCH (21:03)
[2020-10-10] MEDS: Magnesium Hydroxide LIQ 30 ML UDC PO SCH (21:08)
[2020-10-10] MEDS ORDERED: Dextrose 50% Syringe 50 ml 25 GM/50 ML SYRINGE IV PUSH PRN (21:11)
[2020-10-10] MEDS: oxyCODONE/Acetamin 5/325 mg TAB PO PRN (21:59)
[2020-10-10] MEDS: ceFAZolin 1 GM ADVAN 1 GM in NS 0.9% 50 ML 50 ML IVPB SCH (22:33)
[2020-10-11] MEDS: oxyCODONE/Acetamin 5/325 mg TAB PO PRN ×4 (02:03→14:48)
[2020-10-11] MEDS: ceFAZolin 1 GM ADVAN 1 GM in NS 0.9% 50 ML 50 ML IVPB SCH ×2 (06:22→14:47)
[2020-10-11 06:51] LABS: Hematocrit 38 % (35-47); Hemoglobin 12.6 g/dL (12.0-16.0); Mean Platelet Volume 8.1 fL (7.4-10.4); Platelet Count 282 10^3/uL (150-450)
[2020-10-11 07:01] LABS: BUN/Creatinine Ratio 13.2 (8-20); Calcium 8.8 mg/dL (8.6-10.3); EGFR African American 112.2 (>60); EGFR Non-African American 92.7 (>60); Potassium 4.7 mmol/L (3.5-5.0)
[2020-10-11] MEDS: fentaNYL Patch Check Q Shift NOTE FOLLOW UP SCH (07:27)
[2020-10-11] MEDS ORDERED: Potassium Chlor 20 meq TAB.ER PO SCH (09:00)
[2020-10-11] MEDS ORDERED: Vitamin THERAPEUTIC TAB PO SCH (09:00)
[2020-10-11] MEDS: Magnesium Hydroxide LIQ 30 ML UDC PO SCH (09:14)
[2020-10-11 11:43] VITALS: BP 108/56
== END 2020-10-11 16:00 | disposition home or self-care (01) ==
LOC: OR 11:54 → SSU 11:54
PROVIDERS: ADMIT Orthopaedic Surgery Adult Reconstructive Orthopaedic Surgery; ATTEND Orthopaedic Surgery Adult Reconstructive Orthopaedic Surgery